=== PATIENT | male | born 1955 | race Caucasian/White ===

== ENCOUNTER 2017-07-04 09:22 | Emergency (ER) | payer MEDICARE, MEDICAID ==
[2017-07-04 09:31] VITALS: BP 132/84
== END 2017-07-04 11:04 | disposition left against medical advice (07) ==
LOC: ED 09:22
DX: L98.9 Disorder of the skin and subcutaneous tissue, unspecified (principal); Z53.21 Procedure and treatment not carried out due to patient leaving prior to being seen by health care provider

== ENCOUNTER 2017-07-10 08:43 | Emergency (ER) | payer MEDICARE, MEDICAID ==
[2017-07-10] MEDS ORDERED: LORATADINE 10 MG TABLET PO STA (08:57)
[2017-07-10] MEDS ORDERED: SILVER SULFADIAZINE CREAM 25 GM TUBE TOP STA (08:57)
[2017-07-10] MEDS ORDERED: TRIAMCINOLONE 40 MG/ML VIAL IM STA (08:58)
[2017-07-10] MEDS ORDERED: HYDROmorphone 1 MG/ML SYRINGE IM STA (09:00)
[2017-07-10] MEDS ORDERED: TRIAMCINOLONE 40 MG/ML VIAL ONE (09:05)
[2017-07-10] MEDS ORDERED: LORATADINE 10 MG TABLET ONE (09:05)
[2017-07-10] MEDS ORDERED: SILVER SULFADIAZINE CREAM 25 GM TUBE TOP ONE ×2 (09:06→09:41)
[2017-07-10] MEDS ORDERED: HYDROmorphone 1 MG/ML SYRINGE ONE (09:07)
[2017-07-10 09:58] VITALS: BP 159/80
--- NOTE | 2017-07-10 09:58 | ED Physician Documentation ---
History of Present Illness - Stated complaint Stated Complaint: BLISTERS BOTH ARMS - Chief complaint Chief Complaint: Ext Problem - Additonal information Additional information: Patient is a healthy well-appearing man in mild distress secondary pain and blisters of his arms. He does have a history of dry skin and about 5 days ago he started applying a topical cream for dry skin that he got at the [employer] store. From that time to the present he is broken out with a rash all over both arms. No other body parts are affected he has no systemic complaints whatsoever. Area is very pruritic and weeping. The blisters are getting worse and he has had a hard time not scratching them. He has no history of this type of reaction before and he denies any possible exposure to poison oak or [place]n. Review of systems: For pertinent positive and negatives in the review of systems please see the history of present illness, otherwise all other systems have been reviewed and are negative. Dragon disclaimer: Parts of this medical record were created using voice recognition technology. Because of the inherent limitations of this system, occasional same sounding word substitutions do occur and persist despite proofreading. Please read the document for context. Review of Systems Skin: reports: Rash, Lesions. denies: Laceration (s), Bite / sting PD PAST MEDICAL HISTORY - Past Medical History Cardiovascular: [place] Respiratory: Asthma, COPD Neuro: Seizure disorder Endocrine/Autoimmune: None GI: Hepatitis : None HEENT: None Psych: Panic attacks Musculoskeletal: Other - Past Surgical History Past Surgical History: Yes HEENT: Tonsil/Adenoidectomy - Present Medications Home Medications: Ambulatory Orders Medication Instructions Recorded Confirmed HYDROcod/ACETAM 5/325 [[place] 5/325] 1 - 2 ea PO Q6H PRN #15 tablet 07/10/17 Loratadine [Claritin] 10 mg PO DAILY #7 tablet 07/10/17 Prednisone 40 mg PO DAILY #8 tablet 07/10/17 Triamcinolone 0.1% Cream [Kenalog 1 gm TOP BID #45 tube 07/10/17 0.1% Cream] - Allergies Allergies/Adverse Reactions: Allergies Allergy/AdvReac Type Severity Reaction Status Date / Time No Known Drug Allergies Allergy Verified 07/10/17 08:53 - Social History Does the pt smoke?: Yes Smoking Status: Current every day smoker Does the pt drink ETOH?: Yes Does the pt have substance abuse?: No - Immunizations Immunizations are current?: Yes Immunizations: TDAP >10years/unknown - POLST Patient has POLST: No PD ED PE NORMAL - Vitals Vital signs reviewed: Yes - General General: Alert and oriented X 3, No acute distress - HEENT HEENT: Atraumatic, PERRL, Pharynx benign - Neck Neck: Supple, no meningeal sign, No JVD - Cardiac Cardiac: RRR, No murmur - Respiratory Respiratory: No respiratory distress - Abdomen Abdomen: Normal bowel sounds, Soft - Derm Derm: Normal color, Warm and dry, Other (Patient in general has normal- appearing skin. Both arms from just above the elbow down to the wrists are excoriated, irritated, and oozing clearish serous fluid. The skin is edematous and irregular and rough and contour) - Extremities Extremities: No deformity, No tenderness to palpate - Neuro Neuro: Alert and oriented X 3 Results - Vitals Vitals: Vital Signs - 24 hr 07/10/17 08:49 Temperature 36.7 C Heart Rate 84 Respiratory 18 Rate Blood Pressure 163/78 H O2 Saturation 100 Oxygen O2 Source Room air PD MEDICAL DECISION MAKING - ED course Complexity details: reviewed old records ED course: ddPatient has what appears to be bilateral forearm contact dermatitis presumably from his unknown topical cream he applied from the [employer] store. He does not use a cream for a couple days. The patient was treated with a small amount of parental analgesia, Kenalog IM, and loratadine. Silvadene dressing and Telfa gauze was applied to the forearms bilaterally along with Kerlix and an co-band. The patient has been instructed to keep the bandages in place for couple days if he can. He will then be placed on prednisone, loratadine and topical Kenalog once the arms start to heal. Disposition: To home Clinical impression: 1. Contact dermatitis bilateral forearms moderate in severity Departure - Departure Disposition: 01 Home, Self Care Clinical Impression: Contact dermatitis and eczema due to drugs and medicines in contact with skin Condition: Good Instructions: ED Dermatitis Contact Ch Prescriptions: Loratadine [Claritin] 10 mg PO DAILY #7 tablet Triamcinolone 0.1% Cream [Kenalog 0.1% Cream] 1 gm TOP BID #45 tube HYDROcod/ACETAM 5/325 [[place] 5/325] 1 - 2 ea PO Q6H PRN #15 tablet PRN Reason: Pain Prednisone 40 mg PO DAILY #8 tablet
== END 2017-07-10 10:04 | disposition home or self-care (01) ==
LOC: ED 08:43
DX: L25.9 Unspecified contact dermatitis, unspecified cause (principal); I25.2 Old myocardial infarction; J44.9 Chronic obstructive pulmonary disease, unspecified; J45.909 Unspecified asthma, uncomplicated; K75.9 Inflammatory liver disease, unspecified; F17.200 Nicotine dependence, unspecified, uncomplicated
CPT/HCPCS: 96372; 99283; A9270; J1170

== ENCOUNTER 2017-12-25 09:05 | Emergency (ER) | payer MEDICARE, MEDICAID ==
--- NOTE | 2017-12-25 09:56 | XRAY Report ---
EXAM: LEFT KNEE RADIOGRAPHY EXAM DATE: 12/25/2017 09:47 AM. CLINICAL HISTORY: GLF on left knee from stairs. COMPARISON: None. TECHNIQUE: 3 views. FINDINGS: Bones: Normal. No fractures or bone lesions. Joints: Normal. No effusion. No subluxations. Soft Tissues: Normal. No soft tissue swelling. IMPRESSION: No acute osseous abnormality. [facility] Referring Provider Line: [phone] SITE ID: [id number]
--- NOTE | 2017-12-25 09:56 | XRAY Preliminary Report ---
Exam: XR KNEE 3 VIEW LT IMPRESSION: No acute osseous abnormality. [facility] SITE ID: [id number]
--- NOTE | 2017-12-25 10:06 | ED Physician Documentation ---
PD HPI LOWER EXT INJURY - Stated complaint Stated Complaint: GLF/LEFT KNEE INJ - Chief complaint Chief Complaint: Ext Problem - History obtained from History obtained from: Patient - History of Present Illness PD HPI LOW EXT INJURY LOCATION: Left, Knee Type of injury: Fall Where injury occurred: Home Timing - onset: Last night Timing - duration: Hours Timing - details: Abrupt onset, Still present Improved by: Rest, Immobilization Worsened by: Moving, Palpating Associated symptoms: No: Weakness, Numbness, Tingling, Swelling Contributing factors: No: Anticoagulated Similar symptoms before: Has not had sx before Recently seen: Not recently seen - Additional information Additional information: 62-year-old male was drinking last night slipped on something and fell injuring his left knee he is uncertain exactly how the fall happened he does state that he landed on the left knee and has pain to the medial aspect of the left knee. Review of Systems Constitutional: denies: Fever Eyes: denies: Decreased vision Ears: denies: Ear pain Nose: denies: Congestion Throat: denies: Sore throat Respiratory: denies: Dyspnea : denies: Dysuria, Frequency Skin: denies: Rash Musculoskeletal: reports: Extremity pain, Joint pain, Pain with weight bearing. denies: Neck pain Neurologic: denies: Generalized weakness, Focal weakness, Numbness PD PAST MEDICAL HISTORY - Past Medical History Cardiovascular: [place] Respiratory: Asthma, COPD Neuro: Seizure disorder Endocrine/Autoimmune: None GI: Hepatitis : None HEENT: None Psych: Panic attacks Musculoskeletal: Other - Past Surgical History Past Surgical History: Yes HEENT: Tonsil/Adenoidectomy - Present Medications Home Medications: Ambulatory Orders Medication Instructions Recorded Confirmed HYDROcod/ACETAM 5/325 [[place] 5/325] 1 - 2 ea PO Q6H PRN #15 tablet 12/25/17 - Allergies Allergies/Adverse Reactions: Allergies Allergy/AdvReac Type Severity Reaction Status Date / Time No Known Drug Allergies Allergy Verified 12/25/17 09:09 - Social History Does the pt smoke?: Yes Smoking Status: Current every day smoker Does the pt drink ETOH?: Yes Does the pt have substance abuse?: No - Immunizations Immunizations are current?: Yes Immunizations: TDAP >10years/unknown - POLST Patient has POLST: No PD ED PE NORMAL - Vitals Vital signs reviewed: Yes (tachy and hypertensive ) - General General: Alert and oriented X 3, Well developed/nourished, Other (The patient has some hysterical pain behavior grasping his left knee and morning here in the emergency department) - HEENT HEENT: Atraumatic, PERRL - Respiratory Respiratory: No respiratory distress - Derm Derm: Normal color, Warm and dry, No rash - Extremities Extremities: No deformity, No edema, Other (There is tenderness to the medial joint line on the left knee there is no obvious effusion there is opening of the medial joint with valgus forces both knees have opening laterally with varus forces. Anterior drawer is negative distal neurovascular components are intact.) - Neuro Neuro: No motor deficit, No sensory deficit Eye Opening: Spontaneous Motor: Obeys Commands Verbal: Oriented GCS Score: 15 - Psych Psych: Normal mood, Normal affect Results - Vitals Vitals: Vital Signs - 24 hr 12/25/17 09:08 Temperature 37 C Heart Rate 107 H Respiratory 18 Rate Blood Pressure 151/109 H O2 Saturation 96 Oxygen O2 Source Room air - Rads (name of study) left knee Radiology: Prelim report reviewed (Impression: No acute osseous abnormality.), EMP read indepedently, See rad report PD MEDICAL DECISION MAKING - ED course Complexity details: reviewed results, re-evaluated patient, considered differential, d/w patient ED course: 62-year-old male with a sprain to the left knee has some hysterical pain behavior his narcotic profile is reviewed he has had one prescription in the past year and he is administered hydrocodone here in the emergency department and we will provide a short prescription of pain medication and a knee immobilizer. Departure - Departure Disposition: 01 Home, Self Care Clinical Impression: Sprain of left knee Qualifiers: Encounter type: initial encounter Involved ligament of knee: medial collateral ligament Qualified Code(s): S83.412A - Sprain of medial collateral ligament of left knee, initial encounter Condition: Stable Instructions: ED Sprain Knee Collateral Ligaments Follow-Up: [facility] [Provider Group] Prescriptions: HYDROcod/ACETAM 5/325 [[place] 5/325] 1 - 2 ea PO Q6H PRN #15 tablet PRN Reason: Pain
[2017-12-25] MEDS ORDERED: HYDROcod/ACETAM 5/325 MG TABLET PO STA (10:35)
[2017-12-25 11:01] VITALS: BP 102/50
== END 2017-12-25 10:58 | disposition home or self-care (01) ==
LOC: ED 09:05
DX: S83.412A Sprain of medial collateral ligament of left knee, initial encounter (principal); W01.0XXA Fall on same level from slipping, tripping and stumbling without subsequent striking against object, initial encounter; J44.9 Chronic obstructive pulmonary disease, unspecified; K75.9 Inflammatory liver disease, unspecified; F17.200 Nicotine dependence, unspecified, uncomplicated
CPT/HCPCS: 73562; 99283; A9270

== ENCOUNTER 2018-03-14 12:06 | Emergency (ER) | payer MEDICARE, MEDICAID ==
[2018-03-14] MEDS ORDERED: DEXAMETHASONE 10 MG/ML VIAL PO STA (13:54)
[2018-03-14] MEDS ORDERED: LORazepam 0.5 MG TABLET PO STA (13:54)
--- NOTE | 2018-03-14 13:57 | ED Physician Documentation ---
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 This appears to be spared his back and legs and face and neck. The left arm is particularly bad with weeping and maceration of the skin. He does not know of any specific exposure to poison [place] or poison 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 Review of Systems Constitutional: denies: Fever Eyes: denies: Decreased vision Ears: denies: Ear pain Nose: denies: Rhinorrhea / runny nose, Congestion Throat: denies: Sore throat Cardiac: denies: Chest pain / pressure, Palpitations Respiratory: denies: Dyspnea, Cough GI: denies: Abdominal Pain, Nausea, Vomiting, Constipation, Diarrhea : denies: Dysuria, Frequency Skin: reports: Rash Musculoskeletal: reports: Extremity pain, Extremity swelling. denies: Neck pain , Back pain Neurologic: reports: Seizure (3 this year), Other (shakes a lot). denies: Generalized weakness, Focal weakness, Numbness PD PAST MEDICAL HISTORY - Past Medical History Past Medical History: Yes Cardiovascular: [place] Respiratory: Asthma, COPD Neuro: Seizure disorder Endocrine/Autoimmune: None GI: Hepatitis : None HEENT: None Psych: Panic attacks Musculoskeletal: Other - Past Surgical History Past Surgical History: Yes HEENT: Tonsil/Adenoidectomy - Present Medications Home Medications: Ambulatory Orders Medication Instructions Recorded Confirmed Cephalexin [Keflex] 500 mg PO TID #30 capsule 03/14/18 predniSONE [Deltasone] 10 mg PO DAILY #26 tablet 03/14/18 - Allergies Allergies/Adverse Reactions: Allergies Allergy/AdvReac Type Severity Reaction Status Date / Time No Known Drug Allergies Allergy Verified 03/14/18 12:25 - Social History Does the pt smoke?: Yes Smoking Status: Current every day smoker Does the pt drink ETOH?: Yes Does the pt have substance abuse?: No - Immunizations Immunizations are current?: Yes Immunizations: TDAP >10years/unknown - POLST Patient has POLST: No PD ED PE NORMAL - Vitals Vital signs reviewed: Yes - General General: Alert and oriented X 3, Well developed/nourished, Other (The patient is shaking consitent with alcohol withdrawal. ) - HEENT HEENT: Atraumatic, PERRL, EOMI - Neck Neck: Supple, no meningeal sign - Respiratory Respiratory: No respiratory distress - Derm Derm: Normal color, Warm and dry, Other (There is thickened lichenified skin over the forearms bilaterally with macerated weeping erythema on the left and with only erythema over the chest. The appearance is consistent with exposure to poison [place] or po[place] oak. ) - Extremities Extremities: No deformity, Normal ROM s pain - Neuro Neuro: Alert and oriented X 3, No motor deficit, No sensory deficit, Normal speech, Other (Shaking almost violently ) Eye Opening: Spontaneous Motor: Obeys Commands Verbal: Oriented GCS Score: 15 - Psych Psych: Normal mood, Normal affect Results - Vitals Vitals: Vital Signs - 24 hr 03/14/18 12:22 Temperature 37 C Heart Rate 91 Respiratory 18 Rate Blood Pressure 122/77 O2 Saturation 97 Oxygen O2 Source Room air PD MEDICAL DECISION MAKING - ED course Complexity details: reviewed old records, considered differential, d/w patient ED course: 63-year-old alcoholic male with a contact dermatitis that is severe looks like there is some evidence of superinfection on the left arm and he also appears to be in early stage of alcohol withdrawal. He has had seizure previously with alcohol withdrawal in the amount of shaking he was doing in his visit here prompted me to give him 2 mg of Ativan p.o. He does admit that he normally starts to drink at about 7:00 in the morning when he wakes up in that today he did not do that. We administered a dose of dexamethasone here in the emergency department as well and we will place him on a course of prednisone and antibiotic. Departure - Departure Disposition: 01 Home, Self Care Clinical Impression: Contact dermatitis and eczema Condition: Stable Instructions: ED Dermatitis Contact, ED Staph Infec Abx Tx Only Follow-Up: [facility] [Provider Group] Prescriptions: Cephalexin [Keflex] 500 mg PO TID #30 capsule predniSONE [Deltasone] 10 mg PO DAILY #26 tablet
[2018-03-14 14:01] VITALS: BP 156/82
[2018-03-14] MEDS ORDERED: LORazepam 0.5 MG TABLET ONE (14:04)
[2018-03-14] MEDS ORDERED: CHERRY SYRUP 10 ML UDC PO ONE (14:09)
== END 2018-03-14 14:18 | disposition home or self-care (01) ==
LOC: ED 12:06
DX: L25.9 Unspecified contact dermatitis, unspecified cause (principal); F10.20 Alcohol dependence, uncomplicated; J44.9 Chronic obstructive pulmonary disease, unspecified; I25.2 Old myocardial infarction; G40.909 Epilepsy, unspecified, not intractable, without status epilepticus; K75.9 Inflammatory liver disease, unspecified; F17.200 Nicotine dependence, unspecified, uncomplicated; R25.1 Tremor, unspecified
CPT/HCPCS: 99283; A9270

== ENCOUNTER 2018-06-11 11:18 | Emergency (ER) | payer MEDICARE, MEDICAID ==
[2018-06-11 11:25] VITALS: BP 118/76
[2018-06-11] MEDS ORDERED: IBUPROFEN 600 MG TABLET PO STA (12:29)
--- NOTE | 2018-06-11 12:31 | ED Physician Documentation ---
PD HPI UPPER EXT INJURY - Stated complaint Stated Complaint: RT SHOULDER/ARM PX - Chief complaint Chief Complaint: Ext Problem - History obtained from History obtained from: Patient - History of Present Illness Location: Right, Shoulder Type of injury: Other (Without specific injury, but after a few days of using a bus washer he developed severe posterior right shoulder and neck pain that is much worse if he rotates his neck. He does have a history of rotator cuff problems on both sides but no shoulder surgeries. He describes pins and needles down the lateral side of the right arm.) Review of Systems Constitutional: denies: Fever, Chills Cardiac: denies: Chest pain / pressure, Palpitations Respiratory: denies: Dyspnea, Cough PD PAST MEDICAL HISTORY - Past Medical History Cardiovascular: [place] Respiratory: Asthma, COPD Endocrine/Autoimmune: None GI: Hepatitis : None HEENT: None Psych: Panic attacks Musculoskeletal: Other - Past Surgical History Past Surgical History: Yes HEENT: Tonsil/Adenoidectomy - Present Medications Home Medications: Ambulatory Orders Medication Instructions Recorded Confirmed Oxycodone HCl/Acetaminophen 1 - 2 tab PO Q4H PRN #15 tablet 06/11/18 [Percocet 5-325 mg Tablet] Physical Therapy 1 unit BC ONCE #1 06/11/18 predniSONE [Deltasone] 20 mg PO [id number] #21 tab 06/11/18 - Allergies Allergies/Adverse Reactions: Allergies Allergy/AdvReac Type Severity Reaction Status Date / Time No Known Drug Allergies Allergy Verified 06/11/18 11:25 - Social History Does the pt smoke?: Yes Smoking Status: Current every day smoker Does the pt drink ETOH?: Yes Does the pt have substance abuse?: No - Family History Family history: reports: Non contributory - Immunizations Immunizations are current?: Yes Immunizations: TDAP >10years/unknown - POLST Patient has POLST: No PD ED PE NORMAL - Vitals Vital signs reviewed: Yes - General General: Alert and oriented X 3, No acute distress - Neck Neck: Supple, no meningeal sign, No bony TTP, Other (He is tender over the right side of the low neck and has severe pain with any rotation of the neck.) - Extremities Extremities: Other (He is tender over the posterior right shoulder but not over the glenohumeral joint or clavicle. He can abduct to about 90 without pain. He has slightly diminished sensation over the deltoid and lateral side of the forearm and hand that is very incomplete.) - Neuro Neuro: Alert and oriented X 3, Normal speech Results - Vitals Vitals: Vital Signs - 24 hr 06/11/18 11:22 Temperature 36.1 C L Heart Rate 94 Respiratory 18 Rate Blood Pressure 118/76 O2 Saturation 99 Oxygen O2 Source Room air - Rads (name of study) 3v R shoulder Radiology: EMP read contemporaneously (Mild degenerative changes and articular irregularity of the distal right clavicle may represent osteolysis.) C spine CT Radiology: EMP read contemporaneously (Severe foraminal narrowing at multiple levels.) PD MEDICAL DECISION MAKING - ED course ED course: 63-year-old gentleman with severe shoulder pain that seems like a cervical radiculopathy and this is corroborated by CT findings. No narcotics here as he is driving but he is given Percocet and prednisone and advised on outpatient follow-up. - Sepsis Event Vital Signs: Vital Signs - 24 hr 06/11/18 11:22 Temperature 36.1 C L Heart Rate 94 Respiratory 18 Rate Blood Pressure 118/76 O2 Saturation 99 Oxygen O2 Source Room air Departure - Departure Disposition: 01 Home, Self Care Clinical Impression: Cervical radiculopathy Condition: Good Record reviewed to determine appropriate education?: Yes Instructions: ED Cervical Radiculopathy Prescriptions: Oxycodone HCl/Acetaminophen [Percocet 5-325 mg Tablet] 1 - 2 tab PO Q4H PRN #15 tablet PRN Reason: Pain Physical Therapy 1 unit BC ONCE #1 predniSONE [Deltasone] 20 mg PO [id number] #21 tab Comments: Call your doctor to arrange a follow-up appointment, make the next available appointment. In the interim, return anytime if worse or if new symptoms develop. Do not drink or drive while taking narcotic pain medication. Note that many narcotic pain relievers also contain Tylenol/acetaminophen. Please ensure that your total dose of acetaminophen from all sources does not exceed 3 g (3000 mg) per day. You may get constipated while on this medication. Take a stool softener such as Colace twice a day while you are on it. Also add an [id number]-[id number] laxative such as senna or MiraLAX on any day that you do not have a bowel movement. If you received a narcotic pain medication or sedative while in the emergency department, do not drive for the next 24 hours.
--- NOTE | 2018-06-11 13:07 | XRAY Report ---
Procedure Date: 06/11/2018 Accession Number: [id number] / [id number] Procedure: XR - Shoulder 3 View RT CPT Code: FULL RESULT: EXAM: RIGHT SHOULDER RADIOGRAPHY EXAM DATE: 06/11/2018 12:49 PM. CLINICAL HISTORY: Difficulty moving. Extreme discomfort. Neck/shoulder pain. COMPARISON: 03/19/2011. TECHNIQUE: 3 views. FINDINGS: Bones: No acute fracture or bony lesion. Type II acromion. Minimal degenerative spurring. Slight irregularity of the distal right clavicle at the articular joint margin. Joints: Normal alignment. Mild narrowing of the right acromioclavicular and right glenohumeral joints. No dislocation. Soft tissues: The visualized hemithorax is unremarkable. No soft tissue swelling. IMPRESSION: 1. Mild degenerative changes of the right shoulder. Articular irregularity of the distal right clavicle may represent mild osteolysis. [facility]
--- NOTE | 2018-06-11 13:52 | CT Report ---
Procedure Date: 06/11/2018 Accession Number: [id number] / [id number] Procedure: CT - Cervical Spine W/O CPT Code: FULL RESULT: EXAM: CT CERVICAL SPINE WITHOUT CONTRAST DATE: 06/11/2018 01:03 PM. HISTORY: Neck/shoulder pain. COMPARISONS: None. TECHNIQUE: Thin-section axial images were acquired of the cervical spine without contrast. Post-processing: Coronal and sagittal reformats. Other: None. In accordance with CT protocol optimization, one or more of the following dose reduction techniques were utilized for this exam: automated exposure control, adjustment of mA and/or KV based on patient size, or use of iterative reconstructive technique. FINDINGS: Alignment: No scoliosis or spondylolisthesis. Bones: No acute fracture. Interspace Levels/Facets: Moderate disk degeneration and endplate/uncovertebral proliferation from C3-C4 through C6-C7. Severe left foraminal stenosis at C3-C4 and C4-C5, moderate at C5-C6 and C6-C7. Severe right foraminal stenosis at C5-C6, moderate to severe at C4-C5 and mild at C3-C4. Mild spinal canal stenosis in the mid and lower cervical spine. Mild facet arthrosis. musculature: Unremarkable. Other: Mild carotid bulb calcification. Mild emphysema. IMPRESSION: 1. No acute fracture. 2. Severe foraminal stenosis at several levels. [facility]
== END 2018-06-11 14:15 | disposition home or self-care (01) ==
LOC: ED 11:18
DX: M54.12 Radiculopathy, cervical region (principal); I25.2 Old myocardial infarction; K75.9 Inflammatory liver disease, unspecified; F17.200 Nicotine dependence, unspecified, uncomplicated
CPT/HCPCS: 72125; 73030; 99283; A9270

== ENCOUNTER 2018-12-26 09:12 | Outpatient (CLI) | payer MEDICARE, MEDICAID | END 2018-12-26 09:13 | disposition critical access hospital (66) | LOC: EMS 09:12 | PROVIDERS: ATTEND Surgery | DX: Z00.8 Encounter for other general examination (principal) | CPT/HCPCS: A0425; A0429 ==

== ENCOUNTER 2018-12-26 09:29 | Emergency (ER) | payer MEDICARE, MEDICAID ==
[2018-12-26] MEDS ORDERED: LORazepam 2 MG/ML VIAL IVP STA ×2 (09:56→10:45)
[2018-12-26] MEDS ORDERED: FOLIC ACID INJ 1 MG, THIAMINE INJ 100 MG, MAGNESIUM SULFATE 2 GM, MULTIVITAMIN 10 ML in... IV STA ×5 (09:56)
[2018-12-26] MEDS ORDERED: THIAMINE 100 MG/1 ML 2 ML MDV ONE (10:15)
[2018-12-26 10:16] LABS: BASOPHILS % (AUTO) 0.9 %; EOSINOPHILS # (AUTO) 0.2 10^3/uL (0.0-0.7); EOSINOPHILS % (AUTO) 4.4 %; HGB - HEMOGLOBIN 15.2 g/dL (14.0-18.0); LYMPHOCYTES # (AUTO) 0.9 10^3/uL (1.5-3.5); LYMPHOCYTES % (AUTO) 20.8 %; MEAN CORPUSCULAR HEMOGLOBIN 33.5 pg (27.0-31.0); MEAN CORPUSCULAR HGB CONC 33.2 g/dL (32.0-36.0); MEAN CORPUSCULAR VOLUME 100.8 fL (80.0-94.0); MEAN PLATELET VOLUME 10.3 fL (7.4-11.4); MONOCYTES # (AUTO) 0.5 10^3/uL (0.0-1.0); MONOCYTES % (AUTO) 11.5 %; NEUTROPHILS # (AUTO) 2.8 10^3/uL (1.5-6.6); NEUTROPHILS % (AUTO) 62.4 %; PLT - PLATELET COUNT 95 10^3/uL (130-450); RED BLOOD COUNT 4.53 10^6/uL (4.70-6.10); RED CELL DISTRIBUTION WIDTH 14.4 % (12.0-15.0); WHITE BLOOD COUNT 4.5 x10^3/uL (4.8-10.8)
[2018-12-26 10:24] LABS: PT - PROTHROMBIN TIME 10.7 secs (9.9-12.6)
[2018-12-26 10:28] LABS: ALBUMIN/GLOBULIN RATIO 1.3 (1.0-2.2); BILIRUBIN,TOTAL 0.6 mg/dL (0.2-1.0); CREATININE 0.8 mg/dL (0.6-1.2); TOTAL PROTEIN 7.2 g/dL (6.7-8.2)
--- NOTE | 2018-12-26 10:48 | ED Physician Documentation ---
History of Present Illness - Stated complaint Stated Complaint: ETOH WITHDRAWL - Chief complaint Chief Complaint: General - History obtained from History obtained from: Patient - History of Present Illness Timing: How many days ago (2) - Additonal information Additional information: 63-year-old male with a lifelong history of alcoholism has decided he is going to stop drinking. He has not had a drink in 2 days he is got a lot of shaking and he is shown up to the emergency department today after going to [facility] in [place]. Review of Systems Constitutional: reports: Fatigue. denies: Fever Eyes: denies: Decreased vision Ears: denies: Ear pain Nose: denies: Rhinorrhea / runny nose, Congestion Throat: denies: Sore throat Cardiac: denies: Chest pain / pressure, Palpitations Respiratory: denies: Dyspnea, Cough GI: reports: Abdominal Pain, Nausea. denies: Vomiting : denies: Dysuria, Frequency Skin: denies: Rash Musculoskeletal: denies: Neck pain, Back pain, Extremity pain Neurologic: reports: Headache, Other (shaking). denies: Generalized weakness, Focal weakness, Numbness, Difficulty speaking, Confused, Altered mental status, Head injury, LOC PD PAST MEDICAL HISTORY - Past Medical History Past Medical History: Yes Cardiovascular: [place] Respiratory: Asthma, COPD Endocrine/Autoimmune: None GI: Hepatitis : None HEENT: None Psych: Panic attacks Musculoskeletal: Other Derm: None Other Past Medical History: hep B & hep C - Past Surgical History Past Surgical History: Yes HEENT: Tonsil/Adenoidectomy - Allergies Allergies/Adverse Reactions: Allergies Allergy/AdvReac Type Severity Reaction Status Date / Time No Known Drug Allergies Allergy Verified 12/26/18 09:37 - Social History Does the pt smoke?: Yes Smoking Status: Current every day smoker Does the pt drink ETOH?: Yes ETOH Use: Beer, Liquor Does the pt have substance abuse?: No - Immunizations Immunizations are current?: Yes Immunizations: TDAP >10years/unknown - POLST Patient has POLST: No PD ED PE NORMAL - Vitals Vital signs reviewed: Yes (hypertensive) - General General: Alert and oriented X 3, Well developed/nourished, Other (shaking violently initially ) - HEENT HEENT: Atraumatic, PERRL, EOMI - Neck Neck: Supple, no meningeal sign, No bony TTP - Cardiac Cardiac: RRR, No murmur - Respiratory Respiratory: No respiratory distress, Clear bilaterally - Abdomen Abdomen: Soft, Non tender - Back Back: No CVA TTP, No spinal TTP - Derm Derm: Normal color, Warm and dry, No rash - Extremities Extremities: No deformity, No edema - Neuro Neuro: Alert and oriented X 3, No motor deficit, No sensory deficit, Normal speech Eye Opening: Spontaneous Motor: Obeys Commands Verbal: Oriented GCS Score: 15 - Psych Psych: Normal mood, Normal affect Results - Vitals Vitals: Vital Signs - 24 hr 12/26/18 12/26/18 12/26/18 09:30 11:37 11:47 Temperature 36.8 C Heart Rate 85 82 76 Respiratory 24 18 20 Rate Blood Pressure 141/95 H 144/90 H 144/90 H O2 Saturation 98 99 97 12/26/18 12/26/18 12:30 13:01 Temperature 37.1 C Heart Rate 79 Respiratory 22 Rate Blood Pressure 145/94 H 142/96 H O2 Saturation 98 Oxygen O2 Source Room air - Labs Labs: Laboratory Tests 12/26/18 12/26/18 12/26/18 10:08 10:08 10:08 WBC 4.5 L RBC 4.53 L Hgb 15.2 Hct 45.6 MCV 100.8 H MCH 33.5 H MCHC 33.2 RDW 14.4 Plt Count 95 L MPV 10.3 Neut # (Auto) 2.8 Lymph # (Auto) 0.9 L [place] # (Auto) 0.5 Eos # (Auto) 0.2 Baso # (Auto) 0.0 Absolute Nucleated RBC 0.00 Nucleated RBC % 0.0 PT 10.7 INR 1.0 Sodium 138 Potassium 4.6 Chloride 103 Carbon Dioxide 28 Anion Gap 7.0 BUN 11 Creatinine 0.8 Estimated GFR (MDRD) 98 Glucose 74 Calcium 9.0 Total Bilirubin 0.6 AST 103 H ALT 67 H Alkaline Phosphatase 77 Troponin I Total Protein 7.2 Albumin 4.0 Globulin 3.2 Albumin/Globulin Ratio 1.3 Lipase 45 Urine Color Urine Clarity Urine pH Ur Specific [place] Urine Protein Urine Glucose (UA) Urine Ketones Urine Occult Blood Urine Nitrite Urine Bilirubin Urine Urobilinogen Ur Leukocyte Esterase Ur Microscopic Review Urine Culture Comments Ethyl Alcohol 65.2 12/26/18 12/26/18 10:08 11:58 WBC RBC Hgb Hct MCV MCH MCHC RDW Plt Count MPV Neut # (Auto) Lymph # (Auto) [place] # (Auto) Eos # (Auto) Baso # (Auto) Absolute Nucleated RBC Nucleated RBC % PT INR Sodium Potassium Chloride Carbon Dioxide Anion Gap BUN Creatinine Estimated GFR (MDRD) Glucose Calcium Total Bilirubin AST ALT Alkaline Phosphatase Troponin I < 0.04 Total Protein Albumin Globulin Albumin/Globulin Ratio Lipase Urine Color YELLOW Urine Clarity CLEAR Urine pH 6.0 Ur Specific [place] 1.025 Urine Protein NEGATIVE Urine Glucose (UA) NEGATIVE Urine Ketones NEGATIVE Urine Occult Blood NEGATIVE Urine Nitrite NEGATIVE Urine Bilirubin NEGATIVE Urine Urobilinogen 1 (NORMAL) Ur Leukocyte Esterase NEGATIVE Ur Microscopic Review NOT INDICATED Urine Culture Comments NOT INDICATED Ethyl Alcohol PD MEDICAL DECISION MAKING - ED course Complexity details: reviewed results, re-evaluated patient, considered differential, d/w patient ED course: 63-year-old male with acute alcohol withdrawal has had prior withdrawal seizure and he arrives to the emergency department shaking quite violently. He states that usually he is able to quell this shaking with a beer in the morning and he has not done this. He does have plans to go to a treatment facility for withdrawal. Here in the emerge department he is administered a banana bag int ravenously and intravenous Ativan. He requires more than 1 mg initially and 2 mg are given on a second round. The geriatric social worker is consulted in the case and the patient will require medically supervised detox and the programs available are a 5-day program and the patient has visitation with his 13-year-old daughter in 4 days. He would prefer to go home and drink again until he can go to his inpatient bed on Tuesday. Departure - Departure Disposition: 01 Home, Self Care Clinical Impression: Alcohol withdrawal Qualifiers: Complication of substance-induced condition: uncomplicated Qualified Code(s): F10.230 - Alcohol dependence with withdrawal, uncomplicated Condition: Stable Instructions: ED Withdrawal Alcohol, ED Seizure Alcohol Withdrawal Follow-Up: Asad Llamas PA-C [Primary Care Provider] - Comments: Follow-up with the medically supervised detox facility as arranged by our geriatric social worker.
[2018-12-26 12:18] LABS: BILIRUBIN,URINE NEGATIVE (NEGATIVE); GLUCOSE, URINE (UA) NEGATIVE (NEGATIVE); KETONES,URINE (UA) NEGATIVE (NEGATIVE); LEUKOCYTE ESTERASE, URINE NEGATIVE (NEGATIVE); NITRITE,URINE NEGATIVE (NEGATIVE); OCCULT BLOOD,URINE NEGATIVE (NEGATIVE); PROTEIN,URINE NEGATIVE (NEGATIVE); UROBILINOGEN,URINE 1 (NORMAL) E.U./dL (NORMAL)
[2018-12-26 12:23] LABS: CLARITY,URINE CLEAR (CLEAR)
[2018-12-26 13:49] VITALS: BP 145/80
== END 2018-12-26 13:59 | disposition home or self-care (01) ==
LOC: EDUNIT# → ED 09:29
DX: F10.230 Alcohol dependence with withdrawal, uncomplicated (principal); F17.200 Nicotine dependence, unspecified, uncomplicated
CPT/HCPCS: 36415; 80053; 81003; 83690; 84484; 85025; 85610; 96365; 96376; 99284; J2060; J3411; 80320; 81001; 87086

== ENCOUNTER 2019-04-10 13:04 | Emergency (ER) | payer MEDICARE, MEDICAID ==
--- NOTE | 2019-04-10 13:49 | ED Physician Documentation ---
PD HPI BACK PAIN - Stated complaint Stated Complaint: BACK PX - Chief complaint Chief Complaint: Back Pain - History obtained from History obtained from: Patient - History of Present Illness Timing - onset: Today Timing - details: Gradual onset Location: Lower, Right Quality: Pain Associated symptoms: Incontinent of urine (This is been happening when he laughs or coughs. It is not a new issue.). No: Weakness, Numbness Improves with: Rest Worsened by: Movement Recently seen: Not recently seen - Additional information Additional information: Is a 64-year-old man who presents with complaints of pain in his right lower back that shooting down the right leg through the buttock and posterior lateral to about mid thigh whenever he is turning or walking. He spent the weekend cleaning orta off of roof and cleaning out gutters.Pain was an 8 out of 10 when he arrived here in the emergency department but now it is down to a 6 out of 10. He took one [id number] Advil without relief of the pain In an awkward position.. He is on SSI already due to his back but does not recall having issues of pain radiating down his leg previously. No surgery on the back in the past. He has been diagnosed with a pinched nerve in his neck and there is been discussion with his primary care provider regarding imaging of the low back but he does not remember any MRI scanning. He denies any unusual urinary incontinence. Review of Systems : reports: Incontinent (Long-standing stress incontinence) Skin: denies: Rash Musculoskeletal: reports: Back pain Neurologic: reports: Other (Pain radiating down right leg) PD PAST MEDICAL HISTORY - Past Medical History Cardiovascular: [place] Respiratory: Asthma, COPD Endocrine/Autoimmune: None GI: Hepatitis : None HEENT: None Psych: Panic attacks Musculoskeletal: Other Derm: None - Past Surgical History Past Surgical History: Yes HEENT: Tonsil/Adenoidectomy - Present Medications Home Medications: Ambulatory Orders Medication Instructions Recorded Confirmed Cyclobenzaprine [Flexeril] 10 mg PO TID PRN #20 tablet 04/10/19 Lidocaine Patch 5% [Lidoderm Patch] 1 each TOP DAILY #10 patch 04/10/19 - Allergies Allergies/Adverse Reactions: Allergies Allergy/AdvReac Type Severity Reaction Status Date / Time No Known Drug Allergies Allergy Verified 12/26/18 09:37 - Social History Does the pt smoke?: Yes Smoking Status: Current every day smoker Does the pt drink ETOH?: Yes Does the pt have substance abuse?: No - Immunizations Immunizations are current?: Yes Immunizations: TDAP >10years/unknown - POLST Patient has POLST: No PD ED PE NORMAL - Vitals Vital signs reviewed: Yes (Pleasant, thin man. Slow to sit up and swing his legs over bed due to pain) - General General: Alert and oriented X 3, No acute distress, Well developed/nourished - HEENT HEENT: Atraumatic - Respiratory Respiratory: No respiratory distress - Back Back: Other (No palpable back pain. Loss of lumbar lordosis. ) - Extremities Extremities: No deformity - Neuro Neuro: Alert and oriented X 3, No motor deficit, No sensory deficit, Other (5/5 ankle dorsiflex, sensation intact, reflexes 2+ symmetrical) - Psych Psych: Normal mood, Normal affect Results - Vitals Vitals: Vital Signs - 24 hr 04/10/19 13:11 Temperature 36.6 C Heart Rate 84 Respiratory 16 Rate Blood Pressure 134/94 H O2 Saturation 99 Oxygen O2 Source Room air PD MEDICAL DECISION MAKING - ED course Complexity details: d/w patient ED course: No record of imaging of lumbar spine in past at [facility], but patient does have chronic low back pain that qualifies him for disability. New radicular symptoms. Given injection Toradol 60mg IM and 2 Hydrocodone 5mg. Ice, rest, stretches, lidocaine patch and Flexeril as outpatient. Follow-up with primary provider for further pain control and management if not improving. Departure - Departure Disposition: 01 Home, Self Care Clinical Impression: Back pain Qualifiers: Back pain location: low back pain Chronicity: acute Back pain laterality: right Sciatica presence: with sciatica Sciatica laterality: sciatica of right side Qualified Code(s): M54.41 - Lumbago with sciatica, right side Condition: Good Instructions: ED Sciatica, ED Exercises Lumbar Muscles Follow-Up: Asad Llamas PA-C [Primary Care Provider] - Prescriptions: Cyclobenzaprine [Flexeril] 10 mg PO TID PRN #20 tablet PRN Reason: Spasms Lidocaine Patch 5% [Lidoderm Patch] 1 each TOP DAILY #10 patch Comments: Rest and avoid any lifting, twisting, bending or stooping. You do not want to lay in bed all day, you should get up and walk to keep the back muscles from stiffening up. Continue to use ibuprofen up to 3 tablets every 8 hours with food as an anti-inflammatory. You are given a prescription for lidocaine patches that you can put over the area of pain on your lower back. Replace the patch daily. Prescription for muscle relaxer if you have difficulty sleeping that you can take to see if that will alleviate some of the discomfort. Start the back stretching exercises as outlined in the instructions. They are meant to be done on a firm surface such as the floor. Follow-up with your primary care provider next week for further evaluation and management.
[2019-04-10] MEDS ORDERED: KETOROLAC 60 MG/2 ML VIAL IM STA (14:12)
[2019-04-10] MEDS ORDERED: HYDROcod/ACETAM 5/325 MG TABLET PO STA (14:13)
[2019-04-10 14:26] VITALS: BP 120/68
== END 2019-04-10 14:31 | disposition home or self-care (01) ==
LOC: ED 13:04
DX: M54.41 Lumbago with sciatica, right side (principal); G89.29 Other chronic pain; F17.200 Nicotine dependence, unspecified, uncomplicated
CPT/HCPCS: 96372; 99283; A9270

== ENCOUNTER 2019-05-28 18:46 | Emergency (ER) | payer MEDICARE, MEDICAID ==
--- NOTE | 2019-05-28 20:06 | ED Physician Documentation ---
PD HPI BACK INJURY - Stated complaint Stated Complaint: NECK/BACK PX - History obtained from History obtained from: Patient - History of Present Illness Location: Right, Lower Type of injury: Twist (he had reached for [employer], but did not lever on edge nor other direct impact. Has had muscular type pain off and on. Pain meds OTC did not help.). 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 No pain right then but hurting later in evening.) Timing - details: Abrupt onset (hurt when lifting and then has been having spasms/stiffness later in the day.), Still present Worsened by: Moving, Palpating Associated symptoms: No: Fever, Weakness, Numbness Contributing factors: No: Prior back surgery Similar symptoms before: Diagnosis (recurrent back pain, and is on disability related to back pain/sciatic. He says he has not seen a "back specialist" in the past.) Recently seen: Emergency Dept Review of Systems Constitutional: denies: Fever, Chills, Myalgias Nose: denies: Rhinorrhea / runny nose, Congestion Throat: denies: Sore throat Respiratory: denies: Cough GI: denies: Abdominal Pain, Nausea, Vomiting, Diarrhea Skin: denies: Rash, Lesions PD PAST MEDICAL HISTORY - Past Medical History Cardiovascular: [place] Respiratory: Asthma, COPD Endocrine/Autoimmune: None GI: Hepatitis : None HEENT: None Psych: Panic attacks Musculoskeletal: Chronic back pain, Other Derm: None Other Past Medical History: probably pinched nerve in neck - Past Surgical History Past Surgical History: Yes HEENT: Tonsil/Adenoidectomy - Present Medications Home Medications: Ambulatory Orders Medication Instructions Recorded Confirmed Cyclobenzaprine [Flexeril] 10 mg PO TID PRN #20 tablet 04/10/19 Lidocaine Patch 5% [Lidoderm Patch] 1 each TOP DAILY #10 patch 04/10/19 Methocarbamol [Robaxin] 500 mg PO Q6H PRN #30 tablet 05/28/19 Naproxen 375 mg PO BID #20 tablet 05/28/19 Oxycodone HCl/Acetaminophen 1 each PO Q6H PRN #18 tablet 05/28/19 [Percocet 5-325 mg Tablet] dexAMETHasone [Decadron] 4 mg PO DAILY #5 tablet 05/28/19 - Allergies Allergies/Adverse Reactions: Allergies Allergy/AdvReac Type Severity Reaction Status Date / Time No Known Drug Allergies Allergy Verified 12/26/18 09:37 - Social History Does the pt smoke?: Yes Smoking Status: Current every day smoker Does the pt drink ETOH?: Yes Does the pt have substance abuse?: No - Immunizations Immunizations are current?: Yes Immunizations: TDAP >10years/unknown - POLST Patient has POLST: No PD ED PE NORMAL - Vitals Vital signs reviewed: Yes - General General: Alert and oriented X 3, Well developed/nourished, Other (seems uncomfortable with guarded motion of the lower back. ) - Neck Neck: Supple, no meningeal sign, No adenopathy - Cardiac Cardiac: RRR, No murmur - Respiratory Respiratory: Clear bilaterally - Abdomen Abdomen: Soft, Non tender - Back Back: No CVA TTP, No spinal TTP (but is tender in right paralumbar muscles. ) - Derm Derm: Normal color, Warm and dry - Neuro Neuro: Alert and oriented X 3, No motor deficit, No sensory deficit, Normal speech, Other (normal knee reflexes) Results - Vitals Vitals: Oxygen O2 Source Room air PD MEDICAL DECISION MAKING - ED course Complexity details: reviewed old records (recent visit), reviewed results, re- evaluated patient, considered differential (Back pain after lifting with history of chronic back pain and disability due to that. No red flags on exam or history to suggest need for urgent imaging. Will treat with medication.), d/w patient Departure - Departure Disposition: 01 Home, Self Care Clinical Impression: Back strain Qualifiers: Encounter type: initial encounter Qualified Code(s): S39.012A - Strain of muscle, fascia and tendon of lower back, initial encounter Condition: Stable Record reviewed to determine appropriate education?: Yes Instructions: ED Neck Back Pain General Follow-Up: Asad Llamas PA-C [Primary Care Provider] - Prescriptions: dexAMETHasone [Decadron] 4 mg PO DAILY #5 tablet Methocarbamol [Robaxin] 500 mg PO Q6H PRN #30 tablet PRN Reason: Spasms Naproxen 375 mg PO BID #20 tablet Oxycodone HCl/Acetaminophen [Percocet 5-325 mg Tablet] 1 each PO Q6H PRN #18 tablet PRN Reason: pain Comments: Heat and gentle stretching for the back to reduce stiffness and spasms. Naproxen anti-inflammatory twice daily for the next 7 to 10 days with food. Decadron steroid anti-inflammatory also will help with some of the nerve root irritation and such. Robaxin muscle relaxant as directed as needed for spasms and stiffness. Add Tylenol or oxycodone as needed for pains. Follow-up with your primary care if not improved over the next several days to week. Have your MRI as planned next week. Discharge Date/Time: 05/28/19 21:31
[2019-05-28] MEDS ORDERED: KETOROLAC 60 MG/2 ML VIAL IM STA (20:42)
[2019-05-28] MEDS ORDERED: oxyCODONE/ACET 5/325 Prepack 4 PO STA (20:43)
[2019-05-28] MEDS ORDERED: ACETAMINOPHEN 325 MG TABLET PO STA (20:43)
[2019-05-28] MEDS ORDERED: CYCLOBENZAPRINE 10 MG Prepack 2 PO PRN (20:43)
[2019-05-28] MEDS ORDERED: DEXAMETHASONE 10 MG/ML VIAL PO STA (20:51)
[2019-05-28] MEDS ORDERED: CHERRY SYRUP 10 ML UDC PO ONE (20:51)
[2019-05-28 21:32] VITALS: BP 141/79
== END 2019-05-28 21:31 | disposition home or self-care (01) ==
LOC: ED 18:46
DX: S39.012A Strain of muscle, fascia and tendon of lower back, initial encounter (principal); X50.0XXA Overexertion from strenuous movement or load, initial encounter; Y93.89 Activity, other specified; Y99.0 Civilian activity done for income or pay; F17.200 Nicotine dependence, unspecified, uncomplicated
CPT/HCPCS: 96372; 99283; 99284; A9270

== ENCOUNTER 2019-06-07 07:06 | Outpatient (CLI) | payer MEDICARE, MEDICAID ==
--- NOTE | 2019-06-08 09:20 | MRI Report ---
Reason: CERVICAL SPINE STENOSIS, CERVICAL RADICULOPATHY, R Procedure Date: 06/07/2019 Accession Number: [id number] / [id number] Procedure: MRI - Cervical Spine W/O CPT Code: FULL RESULT: EXAM: MRI CERVICAL SPINE WITHOUT CONTRAST EXAM DATE: 06/07/2019 07:46 AM. CLINICAL HISTORY: Cervical spine stenosis. Cervical radiculopathy, right. COMPARISONS: CT CERVICAL SPINE W/O 06/11/2018 1:01 PM. TECHNIQUE: Multiplanar, multisequence T1-weighted and fluid-sensitive sequences of the cervical spine without contrast. Other: None. FINDINGS: Neurologic Structures: The visualized posterior fossa structures are unremarkable. No signal abnormality in the visualized spinal cord. Alignment: Cervical curvature convex right. Normal alignment. No spondylolisthesis. Bone Marrow: Small amount of diskogenic endplate edema at C5-C6 and C6-C7. No fracture. No destructive bone lesions. Interspace Levels/Facets: C1-C2: Degenerative changes at the atlantodental articulation. No stenosis. C2-C3: Unremarkable. C3-C4: Moderate disk height loss. Annular disk bulge and osteophyte formation with broad-based central protrusion. Moderate left-sided degenerative facet arthropathy and left uncinate hypertrophy. Slight indentation upon the anterior aspect of the cervical spinal cord. Moderate central canal stenosis. Severe left foraminal stenosis. C4-C5: Moderate disk height loss. Annular disk bulge and osteophyte formation with mild facet arthropathy and uncinate hypertrophy. Moderate central canal stenosis. Moderate bilateral foraminal stenosis. C5-C6: Moderate disk height loss. Annular disk bulge and osteophyte formation. Mild facet arthropathy. Moderate central canal stenosis. Moderate right and mild left foraminal stenosis. C6-C7: Mild disk height loss. Annular disk bulge. Left greater than right degenerative facet arthropathy with left uncinate hypertrophy. Mild central canal stenosis. Severe left and mild right foraminal stenosis. C7-T1: Mild facet arthropathy. Small broad-based right foraminal protrusion. Mild right foraminal stenosis. Musculature: Normal. No edema or fatty atrophy. Other: The paravertebral and prevertebral soft tissues are normal. IMPRESSION: 1. Moderate multilevel cervical degenerative disk and facet arthropathy. 2. C3-C4 moderate central canal stenosis. Severe left foraminal stenosis. 3. C4-C5 moderate central canal stenosis and moderate bilateral foraminal stenosis. 4. C5-C6 moderate central canal stenosis. Moderate right and mild left foraminal stenosis. 5. C6-C7 mild central canal stenosis. Severe left and mild right foraminal stenosis. 6. C7-T1 mild right foraminal stenosis. RADIA
== END 2019-06-07 07:07 | disposition home or self-care (01) ==
LOC: DI 07:06
PROVIDERS: ATTEND Physician Assistant Medical
DX: M50.31 Other cervical disc degeneration, high cervical region (principal); M48.02 Spinal stenosis, cervical region; M47.812 Spondylosis without myelopathy or radiculopathy, cervical region
CPT/HCPCS: 72141

== ENCOUNTER 2019-06-13 08:36 | Outpatient (CLI) | payer MEDICARE, MEDICAID | END 2019-06-13 08:37 | disposition critical access hospital (66) | LOC: EMS 08:36 | PROVIDERS: ATTEND Surgery | DX: Z72.89 Other problems related to lifestyle (principal) | CPT/HCPCS: A0425; A0427 ==

== ENCOUNTER 2019-06-13 08:54 | Emergency (ER) | payer MEDICARE, MEDICAID ==
[2019-06-13] MEDS ORDERED: FOLIC ACID INJ 1 MG, THIAMINE INJ 100 MG, MAGNESIUM SULFATE 2 GM, MULTIVITAMIN 10 ML in... IV STA ×5 (08:59)
[2019-06-13] MEDS ORDERED: LORazepam 2 MG/ML VIAL IVP STA (08:59)
--- NOTE | 2019-06-13 09:03 | ED Physician Documentation ---
History of Present Illness - Stated complaint Stated Complaint: ETOH WITHDRAWAL - History obtained from History obtained from: Patient - Additonal information Additional information: Patient is a 64-year-old male presenting with concern for alcohol withdrawal symptoms that began over the past 1 day. Patient's last alcohol intake was last evening and reports that he has been drinking at least 1/5 of alcohol plus beer daily for the past 1 week. Patient has had issues with alcohol abuse for many years and was recently in a detox program and inpatient hospitalization and is currently attending an outpatient program.Patient saw his detox counselor earlier today. Patient denies other substance use or other coingestions. Patient does report dry heaving, nausea, stomach cramps, but denies hallucinations, urinary changes, stool changes. Patient complains of tremors and has had seizures in the past from alcohol withdrawal, although many years ago. Patient received Zofran prior to arrival. No other improving or worsening factors noted. Review of Systems Constitutional: denies: Fever GI: reports: Abdominal Pain, Nausea, Vomiting. denies: Constipation, Diarrhea : denies: Dysuria Psychiatric: denies: Hallucinations PD PAST MEDICAL HISTORY - Past Medical History Past Medical History: Yes Cardiovascular: [place] Respiratory: Asthma, COPD Endocrine/Autoimmune: None GI: Hepatitis : None HEENT: None Psych: Panic attacks Musculoskeletal: Chronic back pain, Other Derm: None - Past Surgical History Past Surgical History: Yes HEENT: Tonsil/Adenoidectomy - Present Medications Home Medications: Ambulatory Orders Medication Instructions Recorded Confirmed No Known Home Medications 06/13/19 06/13/19 - Allergies Allergies/Adverse Reactions: Allergies Allergy/AdvReac Type Severity Reaction Status Date / Time No Known Drug Allergies Allergy Verified 06/13/19 09:02 - Social History Does the pt smoke?: Yes Smoking Status: Current every day smoker Does the pt drink ETOH?: Yes Does the pt have substance abuse?: No - Immunizations Immunizations are current?: Yes Immunizations: TDAP >10years/unknown - POLST Patient has POLST: No PD ED PE NORMAL - Vitals Vital signs reviewed: Yes - General General: Alert and oriented X 3, No acute distress, Well developed/nourished, Other (Tremulous) - HEENT HEENT: Atraumatic, Moist mucous membranes - Neck Neck: Supple, no meningeal sign - Cardiac Cardiac: RRR, No murmur - Respiratory Respiratory: No respiratory distress, Clear bilaterally - Abdomen Abdomen: Normal bowel sounds, Soft, Non tender, Non distended - Derm Derm: Normal color, Warm and dry, No rash - Extremities Extremities: No deformity, No tenderness to palpate - Neuro Neuro: Alert and oriented X 3, No motor deficit, No sensory deficit, Other (Tremulous) - Psych Psych: Normal mood, Normal affect Results - Vitals Vitals: Vital Signs - 24 hr 06/13/19 06/13/19 06/13/19 08:59 09:02 13:55 Temperature 37 C 36.9 C Heart Rate 95 82 88 Respiratory 20 16 18 Rate Blood Pressure 160/94 H 140/98 H 128/111 H O2 Saturation 97 96 100 Oxygen O2 Source Room air - Labs Labs: Laboratory Tests 06/13/19 06/13/19 06/13/19 09:10 09:10 09:10 WBC 5.4 RBC 4.20 L Hgb 13.6 L Hct 40.0 L MCV 95.2 H MCH 32.4 H MCHC 34.0 RDW 14.4 Plt Count 114 L MPV 11.8 H Neut # (Auto) 3.9 Lymph # (Auto) 0.8 L [place] # (Auto) 0.5 Eos # (Auto) 0.1 Baso # (Auto) 0.1 Absolute Nucleated RBC 0.00 Nucleated RBC % 0.0 Sodium 140 Potassium 4.3 Chloride 107 Carbon Dioxide 22 Anion Gap 11.0 BUN 9 Creatinine 0.7 Estimated GFR (MDRD) 114 Glucose 95 Calcium 8.7 Total Bilirubin 0.7 AST 40 ALT 21 Alkaline Phosphatase 54 Total Protein 6.4 L Albumin 3.6 Globulin 2.8 Albumin/Globulin Ratio 1.3 Lipase 35 TSH 0.82 Urine Color Urine Clarity Urine pH Ur Specific [place] Urine Protein Urine Glucose (UA) Urine Ketones Urine Occult Blood Urine Nitrite Urine Bilirubin Urine Urobilinogen Ur Leukocyte Esterase Ur Microscopic Review Urine Culture Comments Salicylates < 6.0 Urine Opiates Screen Ur Oxycodone Screen Urine Methadone Screen Ur Propoxyphene Screen Acetaminophen < 10 L Ur Barbiturates Screen Ur Tricyclics Screen Ur Phencyclidine Scrn Ur Amphetamine Screen U Methamphetamines Scrn U Benzodiazepines Scrn Urine Cocaine Screen U Cannabinoids Screen Ethyl Alcohol < 5.0 06/13/19 11:53 WBC RBC Hgb Hct MCV MCH MCHC RDW Plt Count MPV Neut # (Auto) Lymph # (Auto) [place] # (Auto) Eos # (Auto) Baso # (Auto) Absolute Nucleated RBC Nucleated RBC % Sodium Potassium Chloride Carbon Dioxide Anion Gap BUN Creatinine Estimated GFR (MDRD) Glucose Calcium Total Bilirubin AST ALT Alkaline Phosphatase Total Protein Albumin Globulin Albumin/Globulin Ratio Lipase TSH Urine Color YELLOW Urine Clarity CLEAR Urine pH 7.0 Ur Specific [place] 1.010 Urine Protein NEGATIVE Urine Glucose (UA) NEGATIVE Urine Ketones 15 H Urine Occult Blood NEGATIVE Urine Nitrite NEGATIVE Urine Bilirubin NEGATIVE Urine Urobilinogen 0.2 (NORMAL) Ur Leukocyte Esterase NEGATIVE Ur Microscopic Review NOT INDICATED Urine Culture Comments NOT INDICATED Salicylates Urine Opiates Screen NEGATIVE Ur Oxycodone Screen NEGATIVE Urine Methadone Screen NEGATIVE Ur Propoxyphene Screen NEGATIVE Acetaminophen Ur Barbiturates Screen NEGATIVE Ur Tricyclics Screen NEGATIVE Ur Phencyclidine Scrn NEGATIVE Ur Amphetamine Screen NEGATIVE U Methamphetamines Scrn NEGATIVE U Benzodiazepines Scrn POSITIVE H Urine Cocaine Screen NEGATIVE U Cannabinoids Screen NEGATIVE Ethyl Alcohol PD MEDICAL DECISION MAKING - ED course Complexity details: reviewed results, re-evaluated patient, considered differential, d/w patient, d/w organizational development consultant ED course: Patient presenting with acute alcohol withdrawal mostly related to tremulousness. Patient started on banana bag and received a dose of Ativan which provided significant relief to symptoms. Screening lab work and urinalysis obtained which returned relatively unremarkable. Consulted social work who was attempting to help patient work with his outpatient counselor and arrange for detox, but during this process, patient eloped from the ED. Do not feel he has a risk to himself or others at this time. Departure - Departure Disposition: ED [place] Clinical Impression: Alcohol withdrawal Qualifiers: Complication of substance-induced condition: uncomplicated Qualified Code(s): F10.230 - Alcohol dependence with withdrawal, uncomplicated
[2019-06-13 09:20] LABS: BASOPHILS # (AUTO) 0.1 10^3/uL (0.0-0.1); BASOPHILS % (AUTO) 0.9 %; EOSINOPHILS # (AUTO) 0.1 10^3/uL (0.0-0.7); EOSINOPHILS % (AUTO) 2.4 %; HGB - HEMOGLOBIN 13.6 g/dL (14.0-18.0); LYMPHOCYTES # (AUTO) 0.8 10^3/uL (1.5-3.5); LYMPHOCYTES % (AUTO) 15.2 %; MEAN CORPUSCULAR HEMOGLOBIN 32.4 pg (27.0-31.0); MEAN CORPUSCULAR VOLUME 95.2 fL (80.0-94.0); MEAN PLATELET VOLUME 11.8 fL (7.4-11.4); MONOCYTES # (AUTO) 0.5 10^3/uL (0.0-1.0); MONOCYTES % (AUTO) 8.9 %; NEUTROPHILS # (AUTO) 3.9 10^3/uL (1.5-6.6); NEUTROPHILS % (AUTO) 72.2 %; PLT - PLATELET COUNT 114 10^3/uL (130-450); RED CELL DISTRIBUTION WIDTH 14.4 % (12.0-15.0); WHITE BLOOD COUNT 5.4 x10^3/uL (4.8-10.8)
[2019-06-13 09:34] LABS: ACETAMINOPHEN < 10 ug/mL (10-30); ALBUMIN 3.6 g/dL (3.2-5.5); ALBUMIN/GLOBULIN RATIO 1.3 (1.0-2.2); ALKALINE PHOSPHATASE 54 IU/L (42-121); ALT ALANINE AMINOTRANSFERASE 21 IU/L (10-60); AST ASPARTATE AMINOTRANSFERASE 40 IU/L (10-42); BILIRUBIN,TOTAL 0.7 mg/dL (0.2-1.0); BUN - BLOOD UREA NITROGEN 9 mg/dL (6-20); CALCIUM 8.7 mg/dL (8.5-10.3); CARBON DIOXIDE - CO2 22 mmol/L (21-32); CHLORIDE 107 mmol/L (101-111); CREATININE 0.7 mg/dL (0.6-1.2); GFR - MDRD 114 (>89); GLUCOSE 95 mg/dL (70-100); LIPASE 35 U/L (22-51); SALICYLATE < 6.0 mg/dL; SODIUM 140 mmol/L (135-145); TOTAL PROTEIN 6.4 g/dL (6.7-8.2)
[2019-06-13 11:58] LABS: MUDS CUTOFF CONCENTRATIONS CUTOFF CONC BELOW:
[2019-06-13 12:04] LABS: BILIRUBIN,URINE NEGATIVE (NEGATIVE); GLUCOSE, URINE (UA) NEGATIVE (NEGATIVE); KETONES,URINE (UA) 15 mg/dL (NEGATIVE); LEUKOCYTE ESTERASE, URINE NEGATIVE (NEGATIVE); NITRITE,URINE NEGATIVE (NEGATIVE); OCCULT BLOOD,URINE NEGATIVE (NEGATIVE); PROTEIN,URINE NEGATIVE (NEGATIVE); UROBILINOGEN,URINE 0.2 (NORMAL) E.U./dL (NORMAL)
[2019-06-13 12:07] LABS: CLARITY,URINE CLEAR (CLEAR)
[2019-06-13 12:30] LABS: AMPHETAMINE SCREEN,URINE NEGATIVE (NEGATIVE); BENZODIAZEPINES SCREEN, URINE POSITIVE (NEGATIVE); COCAINE SCREEN URINE NEGATIVE (NEGATIVE); METHADONE SCREEN, URINE NEGATIVE (NEGATIVE); METHAMPHETAMINES SCREEN, URINE NEGATIVE (NEGATIVE); OPIATE SCREEN, URINE NEGATIVE (NEGATIVE); OXYCODONE SCREEN, URINE NEGATIVE (NEGATIVE); PROPOXYPHENE SCREEN, URINE NEGATIVE (NEGATIVE); TRICYCLIC ANTIDEPRESSANT,URINE NEGATIVE (NEGATIVE)
[2019-06-13 13:56] VITALS: BP 128/111
== END 2019-06-13 14:04 | disposition left against medical advice (07) ==
LOC: EDUNIT# → ED 08:54
DX: F10.230 Alcohol dependence with withdrawal, uncomplicated (principal); F17.200 Nicotine dependence, unspecified, uncomplicated
CPT/HCPCS: 36415; 81003; 83690; 96365; 96366; 96375; 99284; J2060; J3411; 80053; 80306; 80307; 80320; 80329; 81001; 84443; 85025; 87086

== ENCOUNTER 2019-06-26 15:50 | Outpatient (CLI) | payer MEDICARE, MEDICAID | END 2019-06-26 15:51 | disposition EMS.NT | LOC: EMS 15:50 | PROVIDERS: ATTEND Surgery | DX: R25.1 Tremor, unspecified (principal) ==

== ENCOUNTER 2019-06-26 17:15 | Emergency (ER) | payer MEDICARE, MEDICAID ==
--- NOTE | 2019-06-26 18:51 | ED Physician Documentation ---
History of Present Illness - Stated complaint Stated Complaint: DETOX - Chief complaint Chief Complaint: General - Additonal information Additional information: This is a 64-year-old male with a history of heavy alcohol use who presents with concerns for symptoms of alcohol withdrawal. Patient states he was in probation court today, and he was arrested after court and was currently taken to halfway. He started feeling tremulous around midday, he states that now he is "shaking like a leaf". He also has some mild stomach cramping which she states he typically gets with alcohol withdrawal. States that he drinks at least 4 tall boys a night, and sometimes several shots of whiskey as well. He has had withdrawal seizures in the past. He has been in inpatient detox programs but has struggled with sobriety.No chest pain, shortness of breath, or vomiting. Review of Systems Constitutional: denies: Fever Cardiac: denies: Chest pain / pressure Respiratory: denies: Dyspnea GI: denies: Vomiting PD PAST MEDICAL HISTORY - Past Medical History Cardiovascular: [place] Respiratory: Asthma, COPD Endocrine/Autoimmune: None GI: Hepatitis : None HEENT: None Psych: Panic attacks Musculoskeletal: Chronic back pain, Other Derm: None - Past Surgical History Past Surgical History: Yes HEENT: Tonsil/Adenoidectomy - Present Medications Home Medications: Ambulatory Orders Medication Instructions Recorded Confirmed chlordiazePOXIDE [Librium] 25 mg PO Q6H PRN 4 Days #10 capsule 06/26/19 - Allergies Allergies/Adverse Reactions: Allergies Allergy/AdvReac Type Severity Reaction Status Date / Time No Known Drug Allergies Allergy Verified 06/26/19 17:22 - Social History Does the pt smoke?: Yes Smoking Status: Current every day smoker Does the pt drink ETOH?: Yes Does the pt have substance abuse?: No - Immunizations Immunizations are current?: Yes Immunizations: TDAP >10years/unknown - POLST Patient has POLST: No PD ED PE NORMAL - Vitals Vital signs reviewed: Yes - General General: Alert and oriented X 3 - HEENT HEENT: Atraumatic - Cardiac Cardiac: RRR - Respiratory Respiratory: Clear bilaterally - Abdomen Abdomen: Soft, Non tender, Non distended - Extremities Extremities: No deformity - Neuro Neuro: Alert and oriented X 3, No motor deficit, No sensory deficit, Normal speech, Other (Patient has a tremulousness of his hands which somewhat volitional, as it sometimes pauses completely, and the amplitude of the movements is larger than typically seen with alcohol withdrawal. He is able to stop the tremulousness when tasks are performed on either of his hands.) - Psych Psych: Normal mood, Normal affect Results - Vitals Vitals: Vital Signs - 24 hr 06/26/19 06/26/19 06/26/19 17:16 19:22 20:43 Temperature 36.4 C L 36.3 C L Heart Rate 74 73 58 L Respiratory 19 17 18 Rate Blood Pressure 153/93 H 145/92 H 149/78 H O2 Saturation 98 96 96 Oxygen O2 Source Room air PD MEDICAL DECISION MAKING - ED course Complexity details: considered differential (Alcohol withdrawal, risk for seizure, alchol use disorder) ED course: Pt presents with his typical symptoms of alcohol withdrawal. I do have a concern that he is exaggerating his tremors as they appear intermittent and high- amplitude. His pulse and BP are within normal limits, I would expect elevation in severe withdrawal. However, I do feel he has a true component of withdrawal, so he was treated with 5mg of valium PO. He had significant improvement in his symptoms. I discussed treatment options, he and the halfway staff are comfortable with a short librium taper. This was prescribed with careful instructions. I also discussed that if he has worsening symptoms despite the librium, or begins developing other symptoms of alcohol withdrawal (visual hallucinations, seizure, etc) he needs to return to the ED immediately. At this time he is very-well appearing with unremarkable vital signs and minimal to no tremulousness. Pt and halfway staff agreed to the plan and and he was discharged to halfway. Departure - Departure Disposition: 01 Home, Self Care Clinical Impression: Alcohol withdrawal Qualifiers: Complication of substance-induced condition: uncomplicated Qualified Code(s): F10.230 - Alcohol dependence with withdrawal, uncomplicated Condition: Stable Instructions: ED Withdrawal Alcohol Follow-Up: Asad Llamas PA-C [Primary Care Provider] - Within 1 week Prescriptions: chlordiazePOXIDE [Librium] 25 mg PO Q6H PRN 4 Days #10 capsule PRN Reason: Alcohol Withdrawal Comments: You were seen today for alcohol withdrawal. You can use the librium as directed for withdrawal, be very careful not to take too much of the medication as it can make you sedated. Return to the ED if your withdrawal symptoms are not managed with medication. Discharge Date/Time: 06/26/19 20:56
[2019-06-26] MEDS ORDERED: diazePAM 5 MG TABLET PO STA (19:18)
[2019-06-26 20:44] VITALS: BP 149/78
== END 2019-06-26 20:56 | disposition home or self-care (01) ==
LOC: EDUNIT# → ED 17:15
DX: F10.230 Alcohol dependence with withdrawal, uncomplicated (principal); F17.200 Nicotine dependence, unspecified, uncomplicated
CPT/HCPCS: 99282; 99284; A9270

== ENCOUNTER 2019-10-15 12:44 | Emergency (ER) | payer MEDICARE, MEDICAID ==
[2019-10-15] MEDS ORDERED: MORPHINE 2 MG/ML CARPUJECT IVP STA (12:48)
[2019-10-15] MEDS ORDERED: ASPIRIN CHEW 81 MG TABLET PO STA (12:48)
--- NOTE | 2019-10-15 12:50 | ED Physician Documentation ---
PD HPI CHEST PAIN - Stated complaint Stated Complaint: CP - History obtained from History obtained from: Patient - History of Present Illness Timing - onset: Yesterday (64-year-old gentleman with remote history of angina, no other heart problems. A couple hours after lifting a very heavy sink yesterday he developed dull right upper chest pain radiating into the right shoulder. Is not associated with shortness of breath, nausea, dizziness. There is no exertional component to it. It does get worse when he coughs, he has a chronic smoker's cough but is not coughing more than normal. Pain got better a little bit overnight but did not completely go away and got worse again just prior to arrival. Prehospital EKG was without ischemic changes. No recent travel, leg pain or swelling. No history of DVT or PE.) Review of Systems Ten Systems: 10 systems reviewed and negative Cardiac: reports: Chest pain / pressure. denies: Palpitations, Pedal edema, Calf pain Respiratory: denies: Dyspnea, Cough GI: denies: Nausea, Vomiting PD PAST MEDICAL HISTORY - Past Medical History Cardiovascular: [place] Respiratory: Asthma, COPD Endocrine/Autoimmune: None GI: Hepatitis : None HEENT: None Psych: Panic attacks Musculoskeletal: Chronic back pain, Other Derm: None - Past Surgical History Past Surgical History: Yes HEENT: Tonsil/Adenoidectomy - Present Medications Home Medications: Ambulatory Orders Medication Instructions Recorded Confirmed Hydrocodone/Acetaminophen 1 - 2 each PO Q6H PRN #10 tablet 10/15/19 [Hydrocodon-Acetaminophen 5-325] - Allergies Allergies/Adverse Reactions: Allergies Allergy/AdvReac Type Severity Reaction Status Date / Time No Known Drug Allergies Allergy Verified 10/15/19 12:49 - Social History Does the pt smoke?: Yes Smoking Status: Current every day smoker Does the pt drink ETOH?: Yes Does the pt have substance abuse?: No - Family History Family history: reports: Non contributory - Immunizations Immunizations are current?: Yes Immunizations: TDAP >10years/unknown - POLST Patient has POLST: No PD ED PE NORMAL - Vitals Vital signs reviewed: Yes - General General: Alert and oriented X 3, No acute distress - HEENT HEENT: PERRL, EOMI - Neck Neck: Supple, no meningeal sign, No bony TTP - Cardiac Cardiac: RRR, No murmur - Respiratory Respiratory: No respiratory distress, Clear bilaterally - Abdomen Abdomen: Soft, Non tender - Back Back: No CVA TTP, No spinal TTP - Derm Derm: Normal color, Warm and dry - Extremities Extremities: No edema, No calf tenderness / cord - Neuro Neuro: Alert and oriented X 3, Normal speech Results - Vitals Vitals: Vital Signs - 24 hr 10/15/19 10/15/19 10/15/19 12:44 13:12 14:41 Temperature 36.8 C Heart Rate 83 66 Respiratory 16 24 Rate Blood Pressure 117/99 H 115/72 Blood Pressure 118/76 [Left] O2 Saturation 100 96 10/15/19 16:00 Temperature Heart Rate 73 Respiratory 17 Rate Blood Pressure 117/73 Blood Pressure [Left] O2 Saturation 98 Oxygen O2 Source Room air - EKG (time done) 1246 Rate: Rate (enter#) (75) Rhythm: NSR [place]: Normal Intervals: Normal NC QRS: Normal Ischemia: Normal ST segments Computer interpretation: Agree with computer - Labs Labs: Laboratory Tests 10/15/19 10/15/19 10/15/19 13:40 13:40 13:40 WBC 8.7 RBC 4.48 L Hgb 14.0 Hct 42.4 MCV 94.6 H MCH 31.3 H MCHC 33.0 RDW 13.8 Plt Count 113 L MPV 12.6 H Neut # (Auto) 5.8 Lymph # (Auto) 1.8 [place] # (Auto) 0.8 Eos # (Auto) 0.3 Baso # (Auto) 0.0 Absolute Nucleated RBC 0.00 Nucleated RBC % 0.0 D-Dimer 257.2 H Sodium 140 Potassium 4.3 Chloride 103 Carbon Dioxide 30 Anion Gap 7.0 BUN 10 Creatinine 0.8 Estimated GFR (MDRD) 98 Glucose 98 Calcium 9.6 Total Bilirubin 0.8 AST 20 ALT 16 Alkaline Phosphatase 62 Troponin I High Sens Total Protein 6.9 Albumin 3.9 Globulin 3.0 Albumin/Globulin Ratio 1.3 Lipase 37 10/15/19 10/15/19 13:40 15:44 WBC RBC Hgb Hct MCV MCH MCHC RDW Plt Count MPV Neut # (Auto) Lymph # (Auto) [place] # (Auto) Eos # (Auto) Baso # (Auto) Absolute Nucleated RBC Nucleated RBC % D-Dimer Sodium Potassium Chloride Carbon Dioxide Anion Gap BUN Creatinine Estimated GFR (MDRD) Glucose Calcium Total Bilirubin AST ALT Alkaline Phosphatase Troponin I High Sens 3.7 4.0 Total Protein Albumin Globulin Albumin/Globulin Ratio Lipase - Rads (name of study) 2v chest Radiology: EMP read contemporaneously (normal) CTA Chest Radiology: EMP read contemporaneously (No PE with clear lungs but mild diffuse bronchial wall thickening which may represent chronic bronchitis. Minimal calcification in the circumflex and right coronary arteries, small peripheral calcifications, likely dystrophic at the lower cervical esophagus or paraesophageal junction.) PD MEDICAL DECISION MAKING - ED course ED course: 64-year-old gentleman with ongoing atypical chest pain, EKG is nonischemic. Heart score is 2 for age and smoking. Initial troponin negative but d-dimer very mildly elevated, followed with CT pulmonary angiogram negative for PE. Repeat a troponin done 2 hours after the first. No significant change there. Departure - Departure Disposition: 01 Home, Self Care Clinical Impression: Chest wall pain Condition: Good Record reviewed to determine appropriate education?: Yes Instructions: ED Strain Chest Wall Prescriptions: Hydrocodone/Acetaminophen [Hydrocodon-Acetaminophen 5-325] 1 - 2 each PO Q6H PRN #10 tablet PRN Reason: pain Comments: Call your doctor to arrange a follow-up appointment, make the next available appointment. In the interim, return anytime if worse or if new symptoms develop.
--- NOTE | 2019-10-15 13:31 | XRAY Report ---
Reason: chest pain Procedure Date: 10/15/2019 Accession Number: [id number] / [id number] Procedure: XR - Chest 2 View X-Ray CPT Code: 88922 Final Report FULL RESULT: EXAM: CHEST RADIOGRAPHY EXAM DATE: 10/15/2019 01:04 PM. CLINICAL HISTORY: Chest pain. COMPARISON: CHEST 2 VIEW PA/LAT 09/30/2015 10:15 AM. TECHNIQUE: 2 views. FINDINGS: Lungs/Pleura: No focal opacities evident. No pleural effusion. No pneumothorax. Normal volumes. Mediastinum: Heart and mediastinal contours are unremarkable. Other: None. IMPRESSION: No focal consolidation. RADIA
[2019-10-15 13:53] LABS: BASOPHILS % (AUTO) 0.5 %; EOSINOPHILS # (AUTO) 0.3 10^3/uL (0.0-0.7); LYMPHOCYTES # (AUTO) 1.8 10^3/uL (1.5-3.5); LYMPHOCYTES % (AUTO) 20.6 %; MEAN CORPUSCULAR HEMOGLOBIN 31.3 pg (27.0-31.0); MEAN CORPUSCULAR VOLUME 94.6 fL (80.0-94.0); MEAN PLATELET VOLUME 12.6 fL (7.4-11.4); MONOCYTES # (AUTO) 0.8 10^3/uL (0.0-1.0); MONOCYTES % (AUTO) 9.4 %; NEUTROPHILS # (AUTO) 5.8 10^3/uL (1.5-6.6); PLT - PLATELET COUNT 113 10^3/uL (130-450); RED BLOOD COUNT 4.48 10^6/uL (4.70-6.10); RED CELL DISTRIBUTION WIDTH 13.8 % (12.0-15.0); WHITE BLOOD COUNT 8.7 x10^3/uL (4.8-10.8)
[2019-10-15 14:14] LABS: ALBUMIN 3.9 g/dL (3.2-5.5); ALBUMIN/GLOBULIN RATIO 1.3 (1.0-2.2); BILIRUBIN,TOTAL 0.8 mg/dL (0.2-1.0); CALCIUM 9.6 mg/dL (8.5-10.3); CREATININE 0.8 mg/dL (0.6-1.2); TOTAL PROTEIN 6.9 g/dL (6.7-8.2)
[2019-10-15] MEDS ORDERED: IOVERSOL 320 100 ML VIAL IVP ONE ×2 (14:18→14:37)
--- NOTE | 2019-10-15 15:13 | CT Report ---
Reason: PE protocol, dyspnea chest pain, high dimer Procedure Date: 10/15/2019 Accession Number: [id number] / [id number] Procedure: CT - ANGIO CHEST W/WO CPT Code: Final Report FULL RESULT: EXAM: CT ANGIOGRAM CHEST EXAM DATE: 10/15/2019 02:36 PM. CLINICAL HISTORY: PE protocol, dyspnea chest pain, high dimer. COMPARISON: CHEST 2 VIEW 10/15/2019 1:04 PM. TECHNIQUE: Routine helical imaging was performed through the chest in the pulmonary arterial phase. IV Contrast: OPTI 320 80ML. Reconstructions: Coronal 3-D MIP reconstructions.Sagittal and coronal. In accordance with CT protocol optimization, one or more of the following dose reduction techniques were utilized for this exam: automated exposure control, adjustment of mA and/or KV based on patient size, or use of iterative reconstructive technique. FINDINGS: Pulmonary Arteries: Diagnostic quality: Adequate through the segmental arteries. No evidence for acute or chronic pulmonary emboli. RV/LV is within normal limits. There is no interventricular septal bowing. There is no reflux of contrast material in the IVC. Lungs/Pleura: Lungs are normal in volume and generally clear. There is a 5 mm subpleural lymph node on the anterior aspect of the minor fissure (6/204). There is no focal consolidation, emphysema, or interstitial abnormality. There is mild diffuse bronchial wall thickening bilaterally which may reflect chronic bronchitis. There is no bronchiectasis. There is no pleural fluid or pneumothorax. Mediastinum: Heart size is normal. There is minimal circumflex and right corner artery calcification. There is no lymphadenopathy. Lower thyroid gland is unremarkable. There are small peripheral calcifications at the lower cervical esophagus, nonspecific. Thoracic Aorta: Minimal calcification in the normal caliber aorta. No evidence of dissection. Cardiac motion artifact is noted in the descending aorta. Upper Abdomen: Left adrenal hyperplasia. Other: Chest wall unremarkable. Mild to moderate multilevel mid to lower cervical degenerative disk disease. IMPRESSION: 1. There is no pulmonary embolism. 2. The lungs are essentially clear. 3. There is mild diffuse bronchial wall thickening which may reflect chronic bronchitis. 4. Minimal calcification in the circumflex and right coronary arteries. The heart size is normal. 5. Small peripheral calcifications, likely dystrophic, at the lower cervical esophagus or paraesophageal region. RADIA
[2019-10-15 16:15] VITALS: BP 117/73
== END 2019-10-15 16:29 | disposition home or self-care (01) ==
LOC: ED 12:44
DX: R07.89 Other chest pain (principal); R79.89 Other specified abnormal findings of blood chemistry; I25.2 Old myocardial infarction; F17.200 Nicotine dependence, unspecified, uncomplicated
CPT/HCPCS: 36415; 71046; 71275; 80053; 83690; 84484; 85025; 85379; 93005; 99284; A9270; Q9967

== ENCOUNTER 2019-10-15 22:26 | Outpatient (CLI) | payer MEDICARE, MEDICAID | END 2019-10-15 22:27 | disposition critical access hospital (66) | LOC: EMS 22:26 | PROVIDERS: ATTEND Surgery | DX: R07.9 Chest pain, unspecified (principal) | CPT/HCPCS: A0425; A0427 ==